=== PATIENT | female | born 1980 | race Asian ===

== ENCOUNTER 2017-02-28 17:24 | Emergency (ER) | payer OTHER ==
[2017-02-28 17:40] VITALS: BP 123/81
[2017-02-28] MEDS ORDERED: Acetaminophen TAB* 325 MG PO ONE (18:37)
--- NOTE | 2017-02-28 18:37 | UC ---
Throat Pain/Nasal Poli HPI - HPI Summary HPI Summary: Patient has had 2 days of sore throat and fever, has had ear pasin as well. - History of Current Complaint Chief Complaint: UCRespiratory Stated Complaint: SORE THROAT Time Seen by Provider: 02/28/17 18:25 Hx Obtained From: Patient Hx Last Menstrual Period: breast feeding since 03/03/12 ?: No Onset/Duration: Sudden Onset, Lasting Days Severity: Severe Associated Signs & Symptoms: Positive: Dysphagia - Epiglottits Risk Factors Epiglottis Risk Factors: Negative - Allergies/Home Medications Allergies/Adverse Reactions: Allergies Allergy/AdvReac Type Severity Reaction Status Date / Time No Known Allergies Allergy Verified 02/28/17 17:33 PMH/Surg Hx/FS Hx/Imm Hx Previously Healthy: Yes Endocrine History Of: Denies: Diabetes, Thyroid Disease Cardiovascular History Of: Denies: Cardiac Disorders, Hypertension Respiratory History Of: Denies: COPD, Asthma GI/ History Of: Denies: Ulcer - Surgical History Surgical History: None - Family History Known Family History: Positive: Hypertension - Social History Alcohol Use: None Substance Use Type: None Smoking Status (MU): Never Smoked Tobacco Review of Systems Constitutional: Fever, Fatigue Skin: Negative Eyes: Negative ENT: Sore Throat, Ear Ache Respiratory: Negative Cardiovascular: Negative Gastrointestinal: Negative Genitourinary: Negative Motor: Negative Neurovascular: Negative Musculoskeletal: Negative Neurological: Negative Psychological: Negative All Other Systems Reviewed And Are Negative: Yes Physical Exam Triage Information Reviewed: Yes Appearance: Well-Nourished, Ill-Appearing, Pain Distress Vital Signs: Initial Vital Signs Temp 100.6 F 02/28/17 17:35 Pulse 110 02/28/17 17:35 Resp 18 02/28/17 17:35 BP 123/81 02/28/17 17:35 Pulse Ox 97 02/28/17 17:35 Vital Signs Reviewed: Yes Eye Exam: Normal Eyes: Positive: Conjunctiva Clear ENT: Positive: Pharyngeal erythema, TM red, Tonsillar swelling, Tonsillar exudate Dental Exam: Normal Neck exam: Normal Neck: Positive: Supple, Nontender, No Lymphadenopathy Respiratory Exam: Normal Respiratory: Positive: Chest non-tender, Lungs clear, Normal breath sounds Cardiovascular Exam: Normal Cardiovascular: Positive: RRR, No Murmur, Pulses Normal Abdominal Exam: Normal Abdomen Description: Positive: Nontender, No Organomegaly, Soft Bowel Sounds: Positive: Present Musculoskeletal Exam: Normal Musculoskeletal: Positive: Strength Intact, ROM Intact, No Edema Neurological Exam: Normal Neurological: Positive: Alert, Muscle Tone Normal Psychological Exam: Normal Skin Exam: Normal Throat Pain/Nasal Course/Dx - Course Course Of Treatment: hx obtained, exam performed, medication preformed, rapid strep obtained. tylenol given - Differential Dx/Diagnosis Differential Diagnosis/HQI/PQRI: Laryngitis, Pharyngitis, Sinusitis Provider Diagnoses: strep pharyngitis. ear pain Discharge - Discharge Plan Condition: Stable Disposition: HOME Patient Education Materials: Strep Throat (ED) Additional Instructions: take the medication as prescribed. Increase your fluid intake and get plenty of rest. Continue with TYlenol and ibuprofen as needed for pain and fever.
[2017-02-28] MEDS ORDERED: Amoxicillin CAP* 500 MG PO ONE (18:38)
== END 2017-02-28 18:54 | disposition home or self-care (01) ==
LOC: UCEAST 17:24
DX: J02.0 Streptococcal pharyngitis (principal); H92.09 Otalgia, unspecified ear
CPT/HCPCS: 87651; 99202; A9270-GY; G0463

== ENCOUNTER 2018-09-01 02:15 | Inpatient (IN) | payer OTHER ==
--- NOTE | 2018-09-01 05:12 | HP ---
General Information - Reason for Visit Labor - General Information Maternal Age: 38 Grav: 2 Para: 1 SAB: 0 IEA: 0 Estimated Due Date: 09/01/18 Determined By: Early Ultrasound Gestational Age in Weeks/Days: 40 Maternal Blood Type and Rh: A Positive - Results this Serology/RPR Result: Non-Reactive Rubella Result: Immune HBsAg Result: Negative HIV Result: Negative GBS Culture Result: Negative Past Medical History Delivery History: Hx Uncomplicated Vaginal Delivery Delivery History Comment: 02/2012 5lb 15oz boy. Term IOL for GDM A1. Delivered at [facility] [place] by Shreya Berumen CNM Pertinent Past Medical History: Non-Contributory Pertinent Past Surgical History: None Pertinent Family History: See Records Family History Comment: Father: HTN Mother: ovarian cancer age 59 PGM: Arthritis. old age PGF: stomach cancer MGM: HTN. pneumonia PGF: pancreatic cancer - Antepartal Records Antepartal Records: Reviewed, Uncomplicated Review of Systems Constitutional: Comfortable CV Complaint: No Respiratory: Shortness of Breath: No Gastrointestinal: No Nausea/Vomiting, Normal Bowel Movement Genitourinary: No Dysuria, No Leaking Fluid, Spotting Musculoskeletal: Contractions - described as mild. Able to rest Neurological: No Headache, No Visual Changes Movement: Normal Exam Allergies/Adverse Reactions: Allergies No Known Allergies Allergy (Verified 02/28/17 17:33) BP 114/78 HR 80 RR 18 T 97.9 SpO2 100% on RA - Measurements Height: 5 ft 5 in Weight: 146 lb Weight in lbs: 146.122020 Body Mass Index (BMI): 24.3 Pre- Weight: 120 lb Weight Gained This : 26 lbs and 0 ozs - Exam Breast: Breast Exam Deferred CVA: No CVA Tenderness Extremities: No Edema Heart: Normal Rhythm/Heart Sounds HEENT: No Significant Findings Lungs: Clear Bilaterally Rectal: Rectal Exam Deferred Reflexes: DTR 2+ Thyroid: No Thyromegaly - Abdominal Exam Abdomen Exam: Non-Tender, Fundal Height Consistent with Dates - Ultrasound/Biophysical Profile Ultrasound Status: Not Done Targeted Exam Findings See L&D Outpatient Visit Provider Note for Findings: N/A Estimated Weight: 6.5 by Tanner Cervical Exam: 7cm Effacement: 80% Station: 0 Presenting Part: Vertex Membrane Status: Intact Sterile Speculum Exam: Not done Bleeding/Discharge: Bloody Show EFM Findings - External Monitor Findings Baseline Heart Rate: 125 External Monitor Findings: Accelerations Present, No Pattern of Variable or Late Decelerations, Variability Moderate, Baseline Stable External Monitor Findings Comment: No evidence of metabolic acidemia Contractions: Irregular, Moderate, 45-90 Seconds, >90 Seconds Contraction Frequency: 2-6 Assessment/Plan - Assessment IUP at 40 weeks in labor - Plan Plan: Admit - Anticipate Vaginal Delivery Plan Comment: Admit. Pt declines pain management. Anticipate - Date/Time of Admission Date of Admission: 09/01/18 Time of Admission: 04:50
--- NOTE | 2018-09-01 06:59 | PN ---
Progress Note - Progress Note Date of Service: 09/01/18 Note: S: Pt resting comfortably in bed. Reports UCs stronger and taking more of her attention. O: 123/74 HR 68 T97.9 FHT: 120bpm. Mod variability. +Accels. No decels UCs q 5 min VE: 8cm/90%/vtx 0 A: IUP at 40 weeks in labor No evidence of metabolic acidemia P: Expectant management. Report to Jazmyne Rosen CNM who will assume care at 0800 if pt remains undelivered
[2018-09-01] MEDS ORDERED: Witch Hazel PAD* JAR TOPICAL PRN (08:12)
[2018-09-01] MEDS ORDERED: Dibucaine 1% 28.35 GM TUBE PR PRN (08:12)
[2018-09-01] MEDS ORDERED: Acetaminophen TAB* 325 MG PO PRN (08:12)
[2018-09-01] MEDS ORDERED: Ibuprofen TAB* 600 MG PO PRN (08:12)
[2018-09-01] MEDS ORDERED: Glycerin ADULT SUPP PR PRN (08:12)
[2018-09-01] MEDS ORDERED: OXYTOCIN* 10 UNITS/ML 1 ML VIAL ONE (08:29)
[2018-09-01] MEDS ORDERED: OXYTOCIN* 10 UNITS/ML 1 ML VIAL IM ONE (08:30)
--- NOTE | 2018-09-01 08:33 | PROCNOTE ---
[facility] [place] OB: Delivery Note - Delivery A Date of : 09/01/18 Time of : 07:50 [place] Sex: Male Score 1 Minute: 9 Score 5 Minutes: 9 Gestational Age in Weeks and Days at Delivery: 40 Weeks and 0 Days Delivery Method: Spontaneous Vaginal Labor: Spontaneous Did Patient attempt ?: N/A, No Previous Amniotic Fluid: Clear Estimated Blood Loss: 300 Anesthesia/Analgesia: None Delivered By: Bernice Clemente - Nursery Level of Nursery: Regular/Bedside - Perineum Perineal Injury: 2nd Degree Perineal Injury Comment: Repaired with 3-0 Rapide under local infiltration 1% lidocaine Perineal Repair: By Delivering Practioner - Events Delivery Events of Note: Post- Bleeding - Meds Given Delivery Events of Note Comment: Pitocin 10units IM given to prevent pp bleed - Additional Delivery Notes Additional Delivery Notes: Pt admitted in labor with expected progression to complete. Amniotomy to clear fluid with onset of pushing. Length of active phase 1 hour, 12 min. Pushed x 7 min. liveborn male. Slow, controlled delivery of head. OA to TIERNEY. Tight nuchal cord x 1. somersaulted through. vigorous with spontaneous cry. HR>110bpm. Delivered to maternal abdomen. Cord clamped x 2 and cut by FOB when pulsations ceased. Spontaneous delivery of intact placenta. Membranes complete. Fundus initially firm then atonic with brisk bleeding when hand removed. 10 units IM pitocin given. Fundus firm to massage and remained firm. Bleeding resolved. Repair as above. Anatomy restored and good hemostasis achieved. Pt tolerated well. At time of note mother and in stable condition. Planning to breast feed.
[2018-09-01] MEDS: Docusate CAP* 100 MG PO SCH ×3 (10:22→21:10)
[2018-09-02 06:59] LABS: ABS Basophils 0 10^3/ul (0-0.2); ABS Eosinophils 0.1 10^3/ul (0-0.6); ABS Lymphocytes 1.4 10^3/ul (1.0-4.8); ABS Monocytes 0.7 10^3/ul (0-0.8); ABS Neutrophils 8.1 10^3/ul (1.5-7.7); ABS Nucleated RBC 0 10^3/ul; Eosinophil % 0.5 % (0-6); Hematocrit 33 % (35-47); Hemoglobin 11.4 g/dl (12.0-16.0); Lymphocyte % 13.4 % (25-47); Mean Corpuscular HGB Conc 35 g/dl (31-36); Mean Corpuscular Hemoglobin 34 pg (27-31); Mean Corpuscular Volume 98 fL (80-97); Mean Platelet Volume 7.6 um3 (7.4-10.4); Nucleated Red Blood Cells % 0; Platelet Count 140 10^3/ul (150-450); Red Blood Count 3.35 10^6/ul (4.00-5.40); Red Cell Distribution Width 13 % (10.5-15); White Blood Count 10.3 10^3/ul (3.5-10.8)
[2018-09-02] MEDS: Docusate CAP* 100 MG PO SCH ×3 (08:08→20:43)
[2018-09-02] MEDS ORDERED: Ferrous Gluconate TAB* 324 MG TAB PO SCH (09:00)
[2018-09-03] MEDS: Docusate CAP* 100 MG PO SCH (08:08)
[2018-09-03 08:14] VITALS: BP 115/77
== END 2018-09-03 11:50 | disposition home or self-care (01) | DRG 806 ==
LOC: MCHOBOUT 02:15 → MCHOB 04:49
PROVIDERS: ADMIT Midwife; ATTEND Midwife
PROC: 10907ZC Drainage of Amniotic Fluid, Therapeutic from Products of Conception, Via Natural or Artificial Opening (ICD-10-PCS; principal; 2018-09-01)
PROC: 10E0XZZ Delivery of Products of Conception, External Approach (ICD-10-PCS; 2018-09-01)
PROC: 0KQM0ZZ Repair Perineum Muscle, Open Approach (ICD-10-PCS; 2018-09-01)
PROC: 4A1HXCZ Monitoring of Products of Conception, Cardiac Rate, External Approach (ICD-10-PCS; 2018-09-01)
DX: O69.1XX0 Labor and delivery complicated by cord around neck, with compression, not applicable or unspecified (principal); O72.1 Other immediate postpartum hemorrhage; O70.1 Second degree perineal laceration during delivery; Z37.0 Single live birth; Z3A.40 40 weeks gestation of pregnancy
CPT/HCPCS: 36415; 85025; A9270-GY; J2590